=== PATIENT | male | born 1945 | race Caucasian/White ===

== ENCOUNTER 2018-03-20 06:23 | Day surgery (SDC) | payer MEDICARE ==
[2018-03-19 14:04] VITALS: BMI 30.7
--- NOTE | 2018-03-20 11:16 | OP ---
DATE OF PROCEDURE: 03/20/2018 SURGEON: Alberto Crowell M.D. PROCEDURE: Colonoscopy. ANESTHESIA: Premedication given per Anesthesiology Department. PREOPERATIVE DIAGNOSES: 1. History of colon polyps. 2. Family history of colon cancer. POSTOPERATIVE DIAGNOSES: 1. Normal colon exam. 2. Moderate internal hemorrhoids. PROCEDURE IN DETAIL: A written consent was obtained prior to procedure. After adequate sedation, a rectal exam performed was normal. Endoscope was advanced to the cecum. The quality of bowel prep wa s good. The ileocecal valve and appendiceal orifice were identified and appeared normal. The cecum, ascending colon, hepatic flexure, transverse colon, splenic flexure, descending colon, and rectosigm oid colon appeared normal. Retroflexion showed moderate internal hemorrhoids. The patient tolerated the procedure well. ASSESSMENT: 1. Moderate internal hemorrhoids. 2. Otherwise normal colon exam. RECOMMENDATIONS: 1. Repeat colon surveillance in 5 years if general health permits. 2. Fiber-rich diet. 3. Resume current medication and Xarelto.
[2018-03-20] MEDS ORDERED: PROPOFOL 200 MG/20 ML VIAL ONE (14:14)
[2018-03-20] MEDS ORDERED: Lidocaine 1% PF 5 ML VIAL ONE (14:14)
== END 2018-03-20 09:10 | disposition home or self-care (01) ==
LOC: SDC 06:23
PROVIDERS: ATTEND Internal Medicine Gastroenterology
PROC: 0DJD8ZZ Inspection of Lower Intestinal Tract, Via Natural or Artificial Opening Endoscopic (ICD-10-PCS; principal; 2018-03-20)
DX: Z12.11 Encounter for screening for malignant neoplasm of colon (principal); K64.8 Other hemorrhoids; I25.10 Atherosclerotic heart disease of native coronary artery without angina pectoris; E78.00 Pure hypercholesterolemia, unspecified; I10 Essential (primary) hypertension; Z86.010 Personal history of colon polyps; Z80.0 Family history of malignant neoplasm of digestive organs; Z79.01 Long term (current) use of anticoagulants; Z79.899 Other long term (current) drug therapy
CPT/HCPCS: J2001; J2704